=== PATIENT | male | born 1945 | race African-American/Black ===

== ENCOUNTER 2024-05-28 11:18 | Inpatient (IN) | payer OTHER ==
[~2024-05-28] VITALS: Ht 183.4 cm; Wt 117.5 kg
[2024-05-28 11:58] LABS: BASOPHILS % 0.6 % (0.0-2.0); EOSINOPHILS % 3.3 % (0.0-5.0); HEMATOCRIT. 38.8 % (42.0-52.0); HEMOGLOBIN. 12.5 g/dL (14.0-18.0); LYMPHOCYTES % 25.1 % (20.0-50.0); MEAN CORPUSCULAR HEMOGLOBIN 29.9 pg (28.0-32.0); MEAN CORPUSCULAR HGB CONC 32.1 g/dL (31.0-37.0); MEAN CORPUSCULAR VOLUME 93.1 fL (80.0-94.0); MEAN PLATELET VOLUME 8.3 fl (7.4-10.4); MONOCYTES % 9.7 % (2.0-8.0); NEUTROPHILS % 61.3 % (40.0-76.0); PLATELET 239 x1000/uL (130-400); RED BLOOD CELL COUNT 4.17 mill/uL (4.7-6.1); WHITE BLOOD COUNT 6.9 x1000/uL (4.5-11.0)
[2024-05-28] MEDS: IOHEXOL-350 100 ML BOTTLE ONE (11:59)
[2024-05-28 12:10] LABS: CARBON DIOXIDE 25 mEq/L (21-32); CHLORIDE 110 mEq/L (98-107); SODIUM 142 mEq/L (136-145)
[2024-05-28 12:11] LABS: CALCIUM 8.2 mg/dL (8.7-10.4)
[2024-05-28 12:13] LABS: PROTHROMBIN TIME 11.6 sec (9.6-11.0)
[2024-05-28 12:16] LABS: CREATININE 0.9 mg/dL (0.6-1.3); GLUCOSE 88 mg/dL (70-105); UREA NITROGEN BLOOD 16 mg/dL (9-23)
[2024-05-28 12:17] LABS: ALANINE AMINOTRANSFERASE 8 IU/L (10-49); ASPARTATE AMINOTRANSFERASE 13 IU/L (<34)
[2024-05-28 12:18] LABS: BILIRUBIN DIRECT 0.2 mg/dL (<=3.0); BILIRUBIN TOTAL 0.6 mg/dL (0.1-1.0); PROTEIN TOTAL 5.3 g/dL (6.0-8.3)
[2024-05-28 12:24] LABS: TROPONIN I HIGH SENSITIVITY < 4 ng/L (3.0-53)
[2024-05-28] MEDS: CLOPIDOGREL 75MG TABLET PO ONE (13:24)
[2024-05-28] MEDS: ASPIRIN 325MG TABLET PO ONE (13:24)
[2024-05-28 16:18] LABS: TROPONIN I HIGH SENSITIVITY 4 ng/L (3.0-53)
[2024-05-28] MEDS ORDERED: ONDANSETRON HCL 4MG/2ML INJ IV PRN (18:15)
[2024-05-28] MEDS ORDERED: GUAIFENESIN 200MG/10ML SUGAR FREE UDC PO PRN (18:15)
[2024-05-28] MEDS ORDERED: MAGNESIUM/ALUMINUM HYDROXIDE/SIMETHICONE 30ML UDC PO PRN (18:15)
[2024-05-28] MEDS ORDERED: DIPHENHYDRAMINE 50MG/ML VIAL IV PRN (18:15)
[2024-05-28] MEDS ORDERED: CLONIDINE 0.1MG TABLET PO PRN (18:15)
[2024-05-28] MEDS ORDERED: MORPHINE SULFATE 2 MG/ML INJ (NOT FOR IM USE) IV PRN (18:15)
[2024-05-28] MEDS ORDERED: ENOXAPARIN 40MG/0.4ML SYR SUBCUT SCH (18:15)
[2024-05-28] MEDS ORDERED: ACETAMINOPHEN 325MG TABLET PO PRN ×2 (18:15)
[2024-05-28] MEDS ORDERED: DOCUSATE SODIUM 100MG CAPSULE PO PRN (18:15)
[2024-05-28] MEDS ORDERED: ACETAMINOPHEN 650MG SUPP PR PRN ×2 (18:15)
[2024-05-28] MEDS ORDERED: IPRATROPIUM/ALBUTEROL 0.5-3(2.5)MG/3ML NEB HHN PRN (18:15)
[2024-05-28] MEDS ORDERED: NA PHOS,M-B/NA PHOS,DI-BA ENEMA 118ML PR PRN (18:15)
[2024-05-28 20:15] VITALS: BP 143/78; PULSE 54; RESP 18; TEMP 36.4
[2024-05-28] MEDS: DEXT 5%/0.45% NACL 1000ML 1,000 ML IV SCH (20:15)
[2024-05-28] MEDS ORDERED: ENOXAPARIN 30MG/0.3ML SYR SUBCUT SCH (21:00)
[2024-05-28] MEDS: ATORVASTATIN CALCIUM 40MG TABLET PO SCH (21:00)
[2024-05-28] MEDS: ENOXAPARIN 30MG/0.3ML SYR SUBCUT SCH (22:21)
[2024-05-29] VITALS (7 sets, daily range): BP systolic 123–155; BP diastolic 58–76; PULSE 50–55; RESP 17–19; TEMP 36.4–36.8; O2SAT 98–99
[2024-05-29] MEDS ORDERED: ATOR20TA65 PO (03:06)
[2024-05-29] MEDS ORDERED: TAMSULOSIN PO (03:06)
[2024-05-29] MEDS ORDERED: ATEN50TA PO (03:06)
[2024-05-29 06:01] LABS: CHLORIDE 109 mEq/L (98-107); POTASSIUM 3.9 mEq/L (3.5-5.1); SODIUM 143 mEq/L (136-145)
[2024-05-29 06:02] LABS: CALCIUM 8.9 mg/dL (8.7-10.4); CARBON DIOXIDE 27 mEq/L (21-32)
[2024-05-29 06:07] LABS: GLUCOSE 117 mg/dL (70-105); TRIGLYCERIDE 107 mg/dL (0-150); UREA NITROGEN BLOOD 11 mg/dL (9-23)
[2024-05-29 06:08] LABS: LDL CHOLESTEROL 80 mg/dL (5-100)
[2024-05-29 06:09] LABS: CHOLESTEROL 137 mg/dL (<200); HDL CHOLESTEROL 35 mg/dL (>55)
[2024-05-29] MEDS: PANTOPRAZOLE 40MG DR TABLET PO SCH (07:40)
[2024-05-29 08:12] LABS: BASOPHILS % 0.7 % (0.0-2.0); EOSINOPHILS % 2.7 % (0.0-5.0); HEMATOCRIT. 40.2 % (42.0-52.0); LYMPHOCYTES % 22.8 % (20.0-50.0); MEAN CORPUSCULAR HEMOGLOBIN 30.3 pg (28.0-32.0); MEAN CORPUSCULAR HGB CONC 32.4 g/dL (31.0-37.0); MEAN CORPUSCULAR VOLUME 93.6 fL (80.0-94.0); MEAN PLATELET VOLUME 8.8 fl (7.4-10.4); NEUTROPHILS % 63.8 % (40.0-76.0); PLATELET 241 x1000/uL (130-400); RED BLOOD CELL COUNT 4.29 mill/uL (4.7-6.1); RED CELL DISTRIBUTION WIDTH 14.4 % (11.6-14.6); WHITE BLOOD COUNT 6.6 x1000/uL (4.5-11.0)
[2024-05-29] MEDS: ASPIRIN 81MG TABLET PO SCH (09:00)
[2024-05-29] MEDS: CLOPIDOGREL 75MG TABLET PO SCH (09:00)
[2024-05-29 14:14] LABS: CLARITY URINE CLEAR (CLEAR); COLOR URINE YELLOW (YELLOW); GLUCOSE URINE NEGATIVE (NEGATIVE); PH URINE 5.5 (4.5-8.0); PROTEIN URINE NEGATIVE (NEGATIVE)
[2024-05-29 14:15] LABS: KETONES URINE NEGATIVE (NEGATIVE); LEUKOCYTE ESTERASE URINE NEGATIVE (NEGATIVE); NITRITE URINE NEGATIVE (NEGATIVE); OCCULT BLOOD URINE NEGATIVE (NEGATIVE); UROBILINOGEN URINE 0.2 E.U./dL (0.2-1.0)
== END 2024-05-29 19:02 | disposition short-term general hospital (02) | DRG 65 ==
LOC: ER 11:18 → EDBEDREQ 12:42 → 7WST 21:39
PROVIDERS: ADMIT Internal Medicine; ATTEND Internal Medicine
DX: I63.89 Other cerebral infarction (principal); G81.94 Hemiplegia, unspecified affecting left nondominant side; H55.89 Other irregular eye movements; D64.9 Anemia, unspecified; I10 Essential (primary) hypertension; E78.5 Hyperlipidemia, unspecified; H55.00 Unspecified nystagmus; R29.705 NIHSS score 5; E11.9 Type 2 diabetes mellitus without complications; Z79.899 Other long term (current) drug therapy
CPT/HCPCS: 36415; 70496; 70498; 70551; 71045; 80048; 80061; 80076; 81003; 82962; 83036; 84484; 85025; 93005; 99291; A4606; J1650; Q9967